=== PATIENT | female | born 1980 | race Hispanic/Latino ===

== ENCOUNTER → 2017-05-21 | Outpatient (CLI) | payer BC ==
--- NOTE | 2017-05-21 17:16 | Diagnostic Imaging Report ---
PROCEDURE:HAND BILATERAL 3 OR MORE VIEWS INDICATION:Swelling in bilateral hands COMPARISON:None. FINDINGS: Normal mineralization. No acute displaced fracture or dislocation. No lytic or blastic lesion. Joint spaces are preserved. No cystic erosive changes. Soft tissues are grossly unremarkable. CONCLUSION: No acute abnormalities. Allen Agosto M.D. Dictated by: Allen Agosto M.D. on 05/21/2017 at 17:26 Electronically approved by: Allen Agosto M.D. on 05/21/2017 at 17:26
--- NOTE | 2017-05-21 17:18 | Diagnostic Imaging Report ---
PROCEDURE:ELBOW THREE VIEWS BILATERAL INDICATION:Swelling in bilateral hands and elbows COMPARISON:None. FINDINGS: Normal mineralization. No acute, displaced fracture or dislocation. No lytic or blastic lesion. No anterior or posterior fat pad elevation. Joint spaces are preserved. Soft tissues are grossly unremarkable. CONCLUSION: No acute abnormalities. Allen Agosto M.D. Dictated by: Allen Agosto M.D. on 05/21/2017 at 17:27 Electronically approved by: Allen Agosto M.D. on 05/21/2017 at 17:27
== END ==
LOC: RAD 16:30
PROVIDERS: ATTEND Family Medicine
DX: M79.642 Pain in left hand (principal); M79.641 Pain in right hand; M25.522 Pain in left elbow; M25.521 Pain in right elbow